=== PATIENT | female | born 2005 | race Two or more races ===

== ENCOUNTER 2025-05-19 17:43 | Emergency (ER) | payer OTHER ==
[~2025-05-19] VITALS: Ht 160 cm; Wt 88.0 kg
[2025-05-19 18:02] VITALS: BP 113/67; O2SAT 98
[2025-05-19 18:31] LABS: BASO % 0.3 % (0.1-1.2); EOS # 0.13 (0.04-0.54); HEMATOCRIT 37.7 % (34.1-44.9); HEMOGLOBIN 12.4 g/dL (11.2-15.7); LYMPH # 1.96 (1.18-3.74); LYMPH % 30.6 % (19.3-53.1); MEAN CORPUSCULAR HEMOGLOBIN 28.8 pg (25.6-32.2); MONO # 0.65 (0.24-0.82); MONO % 10.1 % (4.7-12.5); NEUT # 3.64 (1.56-6.13); NEUT % 56.8 % (34.0-71.1); PLATELET COUNT 290 K/uL (163-369); RED CELL DISTRIBUTION WIDTH 12.2 % (11.6-14.4)
[2025-05-19 19:41] LABS: PH,URINE 6.5 (5.0-8.0); URINE APPEARANCE Clear; URINE BILIRRUBIN Negative (NEGATIVE); URINE BLOOD Negative; URINE COLOR Yellow; URINE GLUCOSE Negative (NEGATIVE); URINE KETONE Negative (NEGATIVE); URINE LEUKOCYTE Negative; URINE NITRATE Negative; URINE PROTEIN Negative (NEGATIVE); URINE UROBILINOGEN 0.2 E.U./dl
[2025-05-19 19:44] LABS: URINE BACTERIA 165.2 uL (0.0-1933); URINE EPITHELIAL CELLS 4.4 uL (0.0-38.8)
[2025-05-19 19:52] LABS: URINE CAST 0.14 uL (0.0-1.40); URINE RBC 1.9 uL (0.0-20.8); URINE WBC 1.4 uL (0.0-23.2)
== END 2025-05-19 21:19 | disposition home or self-care (01) ==
LOC: ER 18:01
PROVIDERS: General Practice
DX: O20.8 Other hemorrhage in early pregnancy (principal); Z3A.01 Less than 8 weeks gestation of pregnancy

== ENCOUNTER 2025-05-25 21:54 | Emergency (ER) | payer OTHER ==
[~2025-05-25] VITALS: Ht 160 cm; Wt 88.0 kg
[2025-05-26 01:05] LABS: BASO % 0.3 % (0.1-1.2); EOS # 0.13 (0.04-0.54); EOS % 1.1 % (0.7-7.0); LYMPH # 1.77 (1.18-3.74); LYMPH % 15.2 % (19.3-53.1); MEAN PLATELET VOLUME 9.50 fl (9.4-12.4); MONO # 0.59 (0.24-0.82); MONO % 5.1 % (4.7-12.5); NEUT # 9.10 (1.56-6.13); NEUT % 78.0 % (34.0-71.1); RED CELL DISTRIBUTION WIDTH 11.9 % (11.6-14.4)
[2025-05-26 01:32] LABS: URINE APPEARANCE Clear; URINE BILIRRUBIN Negative (NEGATIVE); URINE BLOOD Large; URINE COLOR Orange; URINE GLUCOSE Negative (NEGATIVE); URINE KETONE Negative (NEGATIVE); URINE LEUKOCYTE Small; URINE NITRATE Negative; URINE PROTEIN 30 (NEGATIVE); URINE UROBILINOGEN 1.0 E.U./dl
[2025-05-26 01:35] LABS: URINE BACTERIA 781.1 uL (0.0-1933); URINE EPITHELIAL CELLS 13.2 uL (0.0-38.8); URINE RBC 5337.9 uL (0.0-20.8); URINE WBC 112.5 uL (0.0-23.2)
[2025-05-26 01:51] LABS: URINE CAST 0.00 uL (0.0-1.40)
== END 2025-05-26 04:38 ==
LOC: ER 21:54
PROVIDERS: General Practice
DX: O20.8 Other hemorrhage in early pregnancy (principal); Z3A.01 Less than 8 weeks gestation of pregnancy; N93.9 Abnormal uterine and vaginal bleeding, unspecified